=== PATIENT | male | born 1985 | race Caucasian/White ===

== ENCOUNTER 2017-02-20 10:13 | Inpatient (IN) | payer OTHER ==
[~2017-02-20] VITALS: Ht 177.8 cm; Wt 140.8 kg
[~2017-02-20 10:13] MED LIST: BUPR-197 PO; CYMB30CA PO; OMEP20TA39 PO; TRAZ100 PO; ULTR50TA PO; VENL-39 PO; VIAG25TA PO
[2017-02-20 10:15] VITALS: BP 174/86; PULSE 78; RESP 20; TEMP 98.1; O2SAT 96
[2017-02-20] MEDS ORDERED: SODIUM CHLOR 0.9% 1000 ML INJ 1,000 ML IV SCH (11:30)
[2017-02-20] MEDS ORDERED: HYDROmorphone HCL PF 1 MG/ML VIAL IVS ONE (11:30)
[2017-02-20] MEDS ORDERED: ONDANSETRON HCL 4 MG/2 ML VIAL IVP ONE (11:30)
[2017-02-20] MEDS ORDERED: OMEP20TA PO (11:43)
[2017-02-20] MEDS ORDERED: TRAZ100T4 PO (11:43)
[2017-02-20] MEDS ORDERED: TRAM50TA PO (11:43)
[2017-02-20] MEDS ORDERED: traMADol HCL 50 MG TAB PO ONE (11:45)
[2017-02-20 12:16] LABS: AUTOMATED NEUTROPHIL # 7.3 TH/MM3 (1.8-7.7); BASOPHIL # 0.1 TH/MM3 (0-0.2); BASOPHIL % 0.8 % (0.0-2.0); EOSINOPHIL # 0.4 TH/MM3 (0-0.4); EOSINOPHIL % 3.4 % (0.0-4.0); HEMATOCRIT 42.9 % (39.0-51.0); HEMO FLAGS DIFF FINAL; LYMPH % 20.8 % (9.0-44.0); LYMPHOCYTE # 2.3 TH/MM3 (1.0-4.8); MEAN CELL VOLUME 90.2 FL (80.0-100.0); MEAN CORPUSCULAR HEMOGLOBIN 30.7 PG (27.0-34.0); MEAN CORPUSCULAR HGB CONC 34.1 % (32.0-36.0); MONO % 8.4 % (0.0-8.0); NEUT % 66.6 % (16.0-70.0); PLATELET COUNT 195 TH/MM3 (150-450); RED BLOOD COUNT 4.75 MIL/MM3 (4.50-5.90); RED CELL DISTRIBUTION WIDTH 13.2 % (11.6-17.2)
[2017-02-20 12:33] LABS: ALKALINE PHOSPHATASE 95 U/L (45-117); TOTAL BILIRUBIN ADULT 0.4 MG/DL (0.2-1.0)
[2017-02-20 12:34] LABS: BACTERIA, URINE RARE /hpf; BLOOD, URINE NEG (NEG); COMMENT (UR) CULT NOT INDICATED; CULTURE IF INDICATED CULT NOT INDICATED; GLUCOSE,URINE NEG (NEG); KETONE, URINE NEG (NEG); NITRITE,URINE NEG (NEG); SQUAMOUS EPITHELIAL CELL URINE <1 /hpf (0-5); URINE COLOR YELLOW (YELLW/STRAW)
[2017-02-20 12:36] LABS: ALT (GPT) 61 U/L (12-78); ANION GAP 6 MEQ/L (5-15); AST (GOT) 30 U/L (15-37); BLOOD UREA NITROGEN 12 MG/DL (7-18); CHLORIDE 105 MEQ/L (98-107); GLOMERULAR FILTRATION RATE 74 ML/MIN (>89); SODIUM (NA) 138 MEQ/L (136-145)
[2017-02-20 12:39] LABS: POTASSIUM 4.3 MEQ/L (3.5-5.1)
--- NOTE | 2017-02-20 12:40 | RADRPT ---
EXAM DATE/TIME: 02/20/2017 12:04 [place] COMPARISON: No previous studies available for comparison. INDICATIONS : Right upper quadrant pain. MEDICAL HISTORY : Bulging disk. Herniated disk. Substance use. SURGICAL HISTORY : None. ENCOUNTER: Initial ACUITY: 3 days PAIN SCORE: 6/10 LOCATION: Right upper quadrant MEASUREMENTS: LIVER: 21.2 cm length COMMON DUCT: Non-visualized RIGHT KIDNEY: 10.8 x 5.4 x 5.8 cm FINDINGS: LIVER: Increased echotexture without focal lesion or ductal dilatation. COMMON DUCT: No intraluminal mass or stone visualized. GALLBLADDER: 1.5 cm gallstone in the neck of the gallbladder. The gallbladder is contracted. Borderline wall thick ening is noted up to 3 mm and there is pericholecystic fluid. PANCREAS: The visualized portions are within normal limits. RIGHT KIDNEY: No evidence of hydronephrosis, stone, or mass. CONCLUSION: 1. Hepatomegaly and hepatic steatosis. 2. Cholelithiasis, contracted gallbladder, slight wall thickening and pericholecystic fluid. The possibility of cholecystitis should be entertained given these findings and a positive sonographi c Mcfarland sign. Louis Bajwa MD on February 20, 2017 at 12:33 Board Certified Radiologist. This report was verified electronically.
[2017-02-20] MEDS: SODIUM CHLORIDE 0.9% FLUSH 10 ML FLUSH IV FLUSH PRN ×2 (12:48→13:41)
[2017-02-20 13:00] VITALS: BP 150/81; PULSE 78; RESP 16; TEMP 97.8; O2SAT 99
[2017-02-20] MEDS ORDERED: PIPERACIL-TAZO 3.375 GM PREMIX 50 ML IV ONE (13:00)
[2017-02-20] MEDS ORDERED: HYDROmorphone HCL PF 1 MG/ML VIAL IV PUSH ONE (13:30)
--- NOTE | 2017-02-20 14:29 | PD ---
HPI Chief Complaint: Abdominal Pain Time Seen by Provider: 11:24 Travel History International Travel<30 days: No Contact w/Intl Traveler<30days: No Traveled to known affect area: No History of Present Illness HPI This is a 31-year-old male who presents to the emergency department with 1 week of right upper quadrant abdominal pain, constant, ranging from a 3 to an 8 out of 10, feeling like a dull aching pain associated with nausea and multiple episodes of vomiting. He denies any fevers or chills. He's never had pain like this before. He does say he recently started a ketone diet where he's been eating a large amount of fatty foods. His father and grandfather both had to have their gallbladders removed. PFSH Past Medical History Blood Disorders: No Anxiety: Yes Depression: Yes Cancer: No Cardiovascular Problems: No Chemotherapy: No Endocrine: No Genitourinary: No Immune Disorder: No Musculoskeletal: Yes (COMPRESSION FX, BULGING DISC, HERNIATED DISC) Neurologic: No Psychiatric: No Respiratory: No Radiation Therapy: No Past Surgical History AICD: No Arteriovenous Shunt: No Insulin Pump: No Joint Replacement: No Pacemaker: No Other Surgery: No Social History Alcohol Use: No Tobacco Use: Yes Substance Use: Yes Allergies-Medications (Allergen,Severity, Reaction): Coded Allergies: No Known Allergies (Verified , 02/20/17) Reported Meds & Prescriptions Reported Meds & Active Scripts Active Reported Tramadol (Tramadol HCl) 50 Mg Tab 50 Mg PO Q4H PRN Omeprazole 20 Mg Tab 20 Mg PO DAILY Trazodone (Trazodone HCl) 100 Mg Tab 200 Mg PO HS Review of Systems Except as stated in HPI: all other systems reviewed are Neg Physical Exam Narrative GENERAL: Morbidly obese. SKIN: Focused skin assessment warm and dry. HEAD: Atraumatic. Normocephalic. EYES: Pupils equal and round. No injection or drainage. ENT: Moist mucous membranes NECK: Trachea midline. CARDIOVASCULAR: Regular rate and rhythm. No murmur appreciated. RESPIRATORY: Clear to auscultation. Breath sounds equal bilaterally. GASTROINTESTINAL: Abdomen soft, tender to palpation in the right upper quadrant with a positive Mcfarland's sign. MUSCULOSKELETAL: No obvious deformities. NEUROLOGICAL: Awake and alert. No obvious cranial nerve deficits. Moving all extremities. PSYCHIATRIC: Appropriate mood and affect; insight and judgment normal. Data Data Last Documented VS Vital Signs Date Time Temp Pulse Resp B/P Pulse Ox O2 Delivery O2 Flow Rate FiO2 02/20/17 12:48 17 02/20/17 10:15 98.1 78 174/86 96 Room Air Orders Complete Blood Count With Diff (02/20/17 11:30) Comprehensive Metabolic Panel (02/20/17 11:30) Lipase (02/20/17 11:30) Urinalysis - C+S If Indicated (02/20/17 11:30) Iv Access Insert/Monitor (02/20/17 11:30) Ecg Monitoring (02/20/17 11:30) Oximetry (02/20/17 11:30) Ondansetron Inj (Zofran Inj) (02/20/17 11:30) Sodium Chlor 0.9% 1000 Ml Inj (Ns 1000 M (02/20/17 11:30) Sodium Chloride 0.9% Flush (Ns Flush) (02/20/17 11:30) Hydromorphone Pf Inj (Dilaudid Pf Inj) (02/20/17 11:30) Tramadol (Ultram) (02/20/17 11:45) Us Abdomen Gallbladder (02/20/17 ) Admit Order (Ed Use Only) (02/20/17 12:55) Labs Laboratory Tests Test 02/20/17 02/20/17 11:50 12:10 White Blood Count 11.0 TH/MM3 Red Blood Count 4.75 MIL/MM3 Hemoglobin 14.6 GM/DL Hematocrit 42.9 % Mean Corpuscular Volume 90.2 FL Mean Corpuscular Hemoglobin 30.7 PG Mean Corpuscular Hemoglobin 34.1 % Concent Red Cell Distribution Width 13.2 % Platelet Count 195 TH/MM3 Mean Platelet Volume 10.0 FL Neutrophils (%) (Auto) 66.6 % Lymphocytes (%) (Auto) 20.8 % Monocytes (%) (Auto) 8.4 % Eosinophils (%) (Auto) 3.4 % Basophils (%) (Auto) 0.8 % Neutrophils # (Auto) 7.3 TH/MM3 Lymphocytes # (Auto) 2.3 TH/MM3 Monocytes # (Auto) 0.9 TH/MM3 Eosinophils # (Auto) 0.4 TH/MM3 Basophils # (Auto) 0.1 TH/MM3 CBC Comment DIFF FINAL Differential Comment Sodium Level 138 MEQ/L Potassium Level 4.3 MEQ/L Chloride Level 105 MEQ/L Carbon Dioxide Level 27.0 MEQ/L Anion Gap 6 MEQ/L Blood Urea Nitrogen 12 MG/DL Creatinine 1.15 MG/DL Estimat Glomerular Filtration 74 ML/MIN Rate Random Glucose 90 MG/DL Calcium Level 9.0 MG/DL Total Bilirubin 0.4 MG/DL Aspartate Amino Transf 30 U/L (AST/SGOT) Alanine Aminotransferase 61 U/L (ALT/SGPT) Alkaline Phosphatase 95 U/L Total Protein 7.7 GM/DL Albumin 3.7 GM/DL Lipase 133 U/L Urine Color YELLOW Urine Turbidity HAZY Urine pH 8.0 Urine Specific [place] 1.024 Urine Protein TRACE mg/dL Urine Glucose (UA) NEG mg/dL Urine Ketones NEG mg/dL Urine Occult Blood NEG Urine Nitrite NEG Urine Bilirubin NEG Urine Urobilinogen LESS THAN 2.0 MG/DL Urine Leukocyte Esterase NEG Urine RBC 1 /hpf Urine WBC 1 /hpf Urine Squamous Epithelial <1 /hpf Cells Urine Amorphous Sediment RARE Urine Bacteria RARE /hpf Microscopic Urinalysis Comment CULT NOT INDICATED MDM Medical Decision Making Medical Screen Exam Complete: Yes Emergency Medical Condition: Yes Interpretation(s) Afebrile, no tachycardia, hypertensive No leukocytosis Electrolytes are reassuring Lipase is normal Urinalysis: No infection Last 24 hours Impressions Gall Bladder Ultrasound 02/20/17 0000 Signed Impressions: Service Date/Time: Monday, February 20, 2017 12:04 - CONCLUSION: 1. Hepatomegaly and hepatic steatosis. 2. Cholelithiasis, contracted gallbladder, slight wall thickening and pericholecystic fluid. The possibility of cholecystitis should be entertained given these findings and a positive sonographic Mcfarland sign. Louis Bajwa MD Differential Diagnosis Acute cholecystitis, symptomatic cholelithiasis, gastritis, pancreatitis, peptic ulcer disease Narrative Course This is a 31-year-old male who presents to the emergency department with right upper quadrant abdominal pain and vomiting for one week. He is tender on exam. Labs are obtained which were reassuring. Ultrasound is consistent with acute cholecystitis. Patient was given a dose of Zosyn. I spoke to Dr. Dasilva who will admit the patient for surgery. Physician Communication Physician Communication Discussed with Diagnosis Primary Impression: Acute cholecystitis Admitting Information Admitting Physician Requests: Dot Vaughn MD Feb 20, 2017 14:29
[2017-02-20] MEDS ORDERED: NALOXONE HCL 0.4 MG/ML AMP IV PRN (16:15)
[2017-02-20] MEDS ORDERED: ceFAZolin 2 GM PREMIX 50 ML IV SCH (16:15)
[2017-02-20] MEDS ORDERED: Post-op Orders (for Pharmacy) MISC XX ONE (16:15)
[2017-02-20] MEDS ORDERED: SODIUM CHLORIDE 0.9% FLUSH 10 ML FLUSH IV FLUSH PRN (16:15)
--- NOTE | 2017-02-20 16:16 | MH ---
cc: LEXY VERONICA DATE OF ADMISSION 02/20/[address] Brothers ADMISSION DIAGNOSIS Acute cholecystitis, cholelithiasis, abdominal pain, obesity. HISTORY OF PRESENT DISEASE This 31-year-old male presents to the emergency room with a 1-week history of abdominal pain and right upper quadrant pain which has been a constant dull aching interspersed with period of colic. The patient had multiple episodes of nausea and vomiting. The patient states he never had anything like this, however, he did start recently a ketone diet which basically is a large amount of fatty foods and no carbs. PAST MEDICAL HISTORY Past medical history is that of depression, anxiety, back injury. PAST SURGICAL HISTORY Surgical history is negative. SOCIAL HISTORY The patient was in the service for a short period time and hurt his back of some sorts, was medically discharged. Smokes about a pack a day and does not drink. States smokes pot. MEDICATIONS 1. Trazodone. 2. Tramadol. 3. Omeprazole. PHYSICAL EXAMINATION GENERAL: Physical examination reveals a 31-year-old male, morbidly obese, normocephalic. HEENT: No trauma to the head. Pupils equally reactive. Extraocular muscles intact. Neck is supple. Bilateral carotid pulses. No bruits. CHEST: Chest is clear, bilateral breath sounds. HEART: Regular rhythm. ABDOMEN: Soft. Active bowel sounds. Obese. No rebound or guarding. No masses. No tenderness. At this point the patient received some pain medicine. EXTREMITIES: Within normal limits. BACK: Back is normal. The patient has no signs of acute vascular deficit. IMPRESSION/RECOMMENDATIONS I reviewed laboratory and diagnostic procedures. This gentleman has a cholecystitis and cholelithiasis with a stone in the neck of the gallbladder. At this point we are going to calm this down and then take the patient to the operating room tomorrow for laparoscopic cholecystectomy. I have explained the risks and benefits. Ambrocio Brothers SJ/EO /3:54 PM /4:03 PM
[2017-02-20] MEDS: SODIUM CHLOR 0.9% 1000 ML INJ 1,000 ML IV SCH ×2 (16:34→21:19)
[2017-02-20] MEDS: PANTOPRAZOLE SOD 40 MG DELAYED RELEASE TAB PO SCH (16:34)
[2017-02-20 16:35] VITALS: BP 123/73; TEMP 97.8
[2017-02-20 17:12] VITALS: BP 131/75; PULSE 60; RESP 18; TEMP 98; O2SAT 95
[2017-02-20] MEDS: MORPHINE SULFATE 4 MG/ML INJ IV PRN ×2 (18:02→21:18)
[2017-02-20 20:28] VITALS: BP 133/75; PULSE 64; RESP 18; TEMP 96.7; O2SAT 93
[2017-02-20] MEDS: SODIUM CHLORIDE 0.9% FLUSH 10 ML FLUSH IV FLUSH SCH (21:00)
[2017-02-20] MEDS: ENOXAPARIN SODIUM 40 MG/0.4 ML SYRINGE SQ SCH (21:18)
[2017-02-21] VITALS: BP 135/75; PULSE 59; RESP 18; TEMP 96.1; O2SAT 100
[2017-02-21] MEDS: MORPHINE SULFATE 4 MG/ML INJ IV PRN ×5 (00:25→23:24)
[2017-02-21 04:00] VITALS: BP 138/86; PULSE 74; RESP 16; TEMP 96; O2SAT 99
[2017-02-21] MEDS ORDERED: BUPIVACAINE/EPINEPHRINE 0.5% PF 30 ML VIAL ONE (07:29)
[2017-02-21 07:36] VITALS: BP 136/77; PULSE 77; RESP 17; TEMP 96.5; O2SAT 95
[2017-02-21 08:00] LABS: APTT (PATIENT) 27.7 SEC (24.3-30.1); INTERNATIONAL NORMALIZED RATIO 0.9 RATIO; PROTHROMBIN TIME - PATIENT 10.3 SEC (9.8-11.6)
[2017-02-21] MEDS: SODIUM CHLORIDE 0.9% FLUSH 10 ML FLUSH IV FLUSH SCH ×2 (08:38→19:20)
[2017-02-21] MEDS: ONDANSETRON HCL 4 MG/2 ML VIAL IV PRN ×2 (09:38→18:57)
[2017-02-21] MEDS ORDERED: NEOSTIGMINE 3 MG/3 ML SYR IV ONE (12:00)
[2017-02-21] MEDS ORDERED: PROPOFOL 200 MG/20 ML AMP IV ONE (12:00)
[2017-02-21] MEDS ORDERED: ONDANSETRON HCL 4 MG/2 ML VIAL IV PUSH ONE (12:00)
[2017-02-21] MEDS ORDERED: ACETAMINOPHEN 1000 MG/100 ML VIAL IV ONE (15:03)
[2017-02-21] MEDS ORDERED: MIDAZOLAM HCL 2 MG/2 ML VIAL ONE (15:03)
[2017-02-21] MEDS ORDERED: fentaNYL CITRATE 250 MCG/5 ML AMP ONE (15:03)
[2017-02-21] MEDS ORDERED: ceFAZolin INJ 1,000 MG VIAL ONE (15:49)
[2017-02-21] MEDS ORDERED: FAMOTIDINE 20 MG/2 ML VIAL ONE (15:55)
[2017-02-21] MEDS ORDERED: *MEPERIDINE 25 MG INJ VIAL PERIprocedural Use ONLY ONE (17:50)
[2017-02-21] MEDS ORDERED: DO NOT ADM ANY ANTICOAGULANT DRUGS PRN (17:50)
[2017-02-21] MEDS ORDERED: *morphine SULFATE 8 MG/ML PERIprocedure ONLY ONE (18:04)
[2017-02-21] MEDS ORDERED: SODIUM CHLORIDE 0.9% FLUSH 10 ML FLUSH IV FLUSH PRN (18:15)
[2017-02-21] MEDS ORDERED: NALOXONE HCL 0.4 MG/ML AMP IV PRN (18:15)
[2017-02-21] MEDS ORDERED: Post-op Orders (for Pharmacy) MISC XX ONE (18:15)
[2017-02-21] MEDS: PANTOPRAZOLE SOD 40 MG DELAYED RELEASE TAB PO SCH (18:57)
[2017-02-21] MEDS: ENOXAPARIN SODIUM 40 MG/0.4 ML SYRINGE SQ SCH (19:19)
[2017-02-21 20:25] VITALS: BP 165/93; PULSE 57; RESP 18; TEMP 96.7; O2SAT 99
[2017-02-21 21:01] VITALS: BP 141/69
[2017-02-21] MEDS: oxyCODONE/ACETAMINOPHEN 5 MG/325 MG TAB PO PRN (22:05)
[2017-02-22] VITALS: BP 133/90; PULSE 68; RESP 18; TEMP 97.3; O2SAT 95
[2017-02-22] MEDS: MORPHINE SULFATE 4 MG/ML INJ IV PRN ×3 (02:57→14:03)
[2017-02-22 03:01] VITALS: BP 155/78; PULSE 61; RESP 18; TEMP 96.9; O2SAT 98
[2017-02-22 07:14] LABS: HEMATOCRIT 43.7 % (39.0-51.0); MEAN CELL VOLUME 90.2 FL (80.0-100.0); MEAN CORPUSCULAR HEMOGLOBIN 31.3 PG (27.0-34.0); MEAN CORPUSCULAR HGB CONC 34.7 % (32.0-36.0); PLATELET COUNT 176 TH/MM3 (150-450); RED BLOOD COUNT 4.84 MIL/MM3 (4.50-5.90); RED CELL DISTRIBUTION WIDTH 12.7 % (11.6-17.2); REVIEW FLAG FINAL; WHITE BLOOD COUNT 11.7 TH/MM3 (4.0-11.0)
[2017-02-22 07:33] LABS: INDIRECT BILIRUBIN 0.3 MG/DL (0.0-0.8); TOTAL BILIRUBIN ADULT 0.4 MG/DL (0.2-1.0)
--- NOTE | 2017-02-22 08:32 | MP ---
cc: AMBROCIO PUGH MD DATE OF SURGERY: 02/21/2017 PREOPERATIVE DIAGNOSIS Acute calculus cholecystitis, cholelithiasis and obesity. POSTOPERATIVE DIAGNOSIS Acute calculus cholecystitis, cholelithiasis and obesity. OPERATIVE PROCEDURE Laparoscopic cholecystectomy. SURGEON Dr. Pugh. ANESTHESIA General. ESTIMATED BLOOD LOSS 20 ccs. PROCEDURE The patient was prepped and draped in usual fashion and supraumbilical incision was made, deepened down to the fascia. Fascia grasped with Kochers and abdomen was entered, under direct vision, Flowers cannula is placed. The abdomen is insufflated with CO2 and the patient placed in the reverse Trendelenburg. A 0 degrees camera is inserted and under direct vision the subxiphoid and two right upper quadrant ports were placed. Gallbladder is visualized. There is omentum stuck to the gallbladder which is inflamed. This is carefully teased down, then the gallbladder is grasped with alligator clamps and elevated. The cystic duct and cystic artery are very carefully dissected. In addition the gallbladder is dissected from the liver plate in order to identify the structures clearly. Once this was done the cystic duct and cystic artery are triple ligated with Ligaclips, divided and gallbladder taken off the liver bed with J hook, delivered through subumbilical incision using EndoCatch bag. The area irrigated with saline, meticulous hemostasis was assured. Instruments were withdrawn. Incision was closed with 0 Vicryl and 4-0 subcuticular Monocryl. The patient tolerated the procedure well. Ambrocio SULLIVAN/TLL /6:51 PM /8:26 AM
[2017-02-22] MEDS: SODIUM CHLORIDE 0.9% FLUSH 10 ML FLUSH IV FLUSH SCH (08:47)
[2017-02-22 08:58] VITALS: BP 137/80; PULSE 78; RESP 16; TEMP 97.9; O2SAT 96
[2017-02-22 11:42] VITALS: BP 142/72; PULSE 74; RESP 19; TEMP 98.6; O2SAT 99
[2017-02-22] MEDS ORDERED: OXYC1TAB63 PO (11:45)
[2017-02-22] MEDS: oxyCODONE/ACETAMINOPHEN 5 MG/325 MG TAB PO PRN ×2 (12:12→16:51)
[2017-02-22 16:00] VITALS: BP 148/76; PULSE 69; RESP 19; TEMP 98.7; O2SAT 100
== END 2017-02-22 17:24 | disposition home or self-care (01) | DRG 419 ==
LOC: NEPD 10:13 → NEDA 12:56 → OBSVTOIN 16:07 → NEPHCDU 17:00 → N06B 19:58
PROVIDERS: ADMIT Surgery; ATTEND Surgery
PROC: 0FT44ZZ Resection of Gallbladder, Percutaneous Endoscopic Approach (ICD-10-PCS; principal; 2017-02-21 16:22)
DX: K80.00 Calculus of gallbladder with acute cholecystitis without obstruction (principal); K76.0 Fatty (change of) liver, not elsewhere classified; E66.9 Obesity, unspecified; F17.210 Nicotine dependence, cigarettes, uncomplicated; F12.90 Cannabis use, unspecified, uncomplicated
CPT/HCPCS: 76705; 80053; 80076; 81001; 83690; 85025; 85027; 85610; 85730; 86850; 86900; 86901; 88304; 94150; 96361; 96374; J0131; J0690; J1170; J1650; J2175; J2250; J2270; J2405; J2543; J2710; J3010; J7030